=== PATIENT | female | born 1980 | race Two or more races ===

== ENCOUNTER 2017-07-01 18:22 | Emergency (ER) | payer MEDICAID, OTHER, SELFPAY ==
[~2017-07-01] VITALS: Ht 165.1 cm; Wt 83.2 kg
[2017-07-01 18:35] VITALS: BP 128/88
== END 2017-07-01 20:49 | disposition home or self-care (01) ==
LOC: ED 20:35
DX: S93.491A Sprain of other ligament of right ankle, initial encounter (principal); J45.909 Unspecified asthma, uncomplicated; X58.XXXA Exposure to other specified factors, initial encounter; Y93.89 Activity, other specified; Y92.89 Other specified places as the place of occurrence of the external cause; Y99.8 Other external cause status
CPT/HCPCS: 99284